=== PATIENT | female | born 1995 | race Caucasian/White ===

== ENCOUNTER → 2022-05-28 16:38 | Outpatient (CLI) | payer OTHER, SELFPAY ==
[2022-05-28 20:08] LABS: Opiate Screen,Urine Negative ng/ml (<300); Phencyclidine Screen,Urine Negative ng/ml (<25)
[2022-05-28 20:14] LABS: Amphetamine/Metha Screen,Urine Negative ng/ml (<1000)
[2022-05-28 20:15] LABS: Barbiturates Screen,Urine Negative ng/ml (<200); Benzodiazepines Screen,Urine Negative ng/ml (<200)
[2022-05-28 20:19] LABS: Cocaine Screen,Urine Negative ng/ml (<300)
[2022-05-28 20:20] LABS: Cannabinoid Screen,Urine Negative ng/ml (<50); Methadone Screen,Urine Negative ng/ml (<300)
== END ==
PROVIDERS: Visit Provider Obstetrics & Gynecology
DX: Z34.90 Encounter for supervision of normal pregnancy, unspecified, unspecified trimester (principal)
CPT/HCPCS: 80305; 87086

== ENCOUNTER → 2022-06-17 09:40 | Outpatient (CLI) | payer OTHER, SELFPAY ==
[2022-06-17 10:03] LABS: Basophils # 0.1 K/mm3 (0-0.2); Basophils % 0.6 % (0.1-2.0); Eosinophils # 0.1 K/mm3 (0.0-0.4); Eosinophils % 0.6 % (0.1-12.0); Hematocrit 39.4 % (37.0-47.0); Hemoglobin 13.1 g/dL (12.2-16.2); Lymphocytes # 1.8 K/mm3 (0.7-4.5); Lymphocytes % 21.1 % (10-50); Mean Corpuscular HGB Conc 33.2 g/dL (31.8-35.4); Mean Corpuscular Hemoglobin 29.5 pg (27.0-31.2); Mean Corpuscular Volume 88.8 fl (81-99); Mean Platelet Volume 8.5 fl (7.4-10.4); Monocytes # 0.4 K/mm3 (0.1-1.0); Monocytes % 4.5 % (1.7-9.3); Neutrophils # 6.4 K/mm3 (1.8-7.8); Neutrophils % 73.2 % (37.0-80.0); Platelet Count 222 K/mm3 (142-424); Red Blood Count 4.44 M/mm3 (4.20-5.40); Red Cell Distribution Width 13.5 % (11.5-17.5); White Blood Count 8.7 K/mm3 (4.8-10.8)
[2022-06-18 12:13] LABS: HIV Screen 4th Generation wRfx Non Reactive (Non Reactive); Rapid Plasma Reagin Ab Titer Non Reactive (NonRea<1:1)
[2022-06-19 23:53] LABS: Hepatitis B Surface Antigen NEGATIVE; Hepatitis C Antibody NON REACTIVE
== END ==
PROVIDERS: Visit Provider Obstetrics & Gynecology
DX: Z34.90 Encounter for supervision of normal pregnancy, unspecified, unspecified trimester (principal)
CPT/HCPCS: 36415; 85025; 86593; 86703; 86762; 86850; 87340; 87380; G0432

== ENCOUNTER → 2022-08-04 12:42 | Outpatient (CLI) | payer OTHER, SELFPAY ==
--- NOTE | 2022-08-04 12:43 | US_ITS ---
FINAL REPORT CLINICAL HISTORY: 20 week anatomy scan please use anatomy template FINDINGS: There is a single live intrauterine gestation. Presentation is cephalic. The cervix is closed and measures 2.8 cm. Placenta is anterior. movement is noted. Cardiac activity is confirmed at 143 beats per minute. Three-vessel cord with satisfactory umbilical cord insertion. Four-chamber heart is noted. brain and ventricles are unremarkable. Chest and diaphragm are unremarkable. ABDOMEN: Both kidneys are unremarkable. Stomach is unremarkable. SPINE: No anomalies identified. Both arms and legs noted. AMNIOTIC FLUID: Appropriate amount. MEASUREMENTS: ULTRASOUND AGE: 20 weeks 0 days. GESTATION AGE: 20 weeks 3 days. ESTIMATED WEIGHT: 324 g GROWTH PERCENTILE: 23% BPD: 4.8 cm consistent with 20 weeks 3 days. OFD: 5.8 cm consistent with 20 weeks 0 days. HC: 16.6 cm consistent with 19 weeks 3 days. AC: 14.7 cm consistent with 20 weeks 0 days. FL: 3.2 cm consistent with 20 weeks 1 days. CEREBELLUM: 2 cm consistent with 20 weeks 3 days. HUMERUS: 3.1 cm consistent with 20 weeks 4 days. HC/AC: 1.13 CI: 82% FL/BPD: 68% FL/AC: 22% IMPRESSION: Single living IUP with an ultrasound age of 20 weeks 0 days. No anomalies noted. Reviewed, Interpreted and Dictated by Kenyatta Rossi MD Transcribed by Jake Adame Authenticated and [facility]
== END ==
PROVIDERS: PCP Family Medicine; Visit Provider Obstetrics & Gynecology
DX: Z34.90 Encounter for supervision of normal pregnancy, unspecified, unspecified trimester (principal); Z3A.20 20 weeks gestation of pregnancy
CPT/HCPCS: 76811

== ENCOUNTER → 2022-09-12 08:57 | Outpatient (CLI) | payer OTHER, SELFPAY ==
[2022-09-12 09:33] LABS: Basophils % 0.1 % (0.1-2.0); Eosinophils % 0.6 % (0.1-12.0); Hemoglobin 10.8 g/dL (12.2-16.2); Lymphocytes # 1.6 K/mm3 (0.7-4.5); Lymphocytes % 21.1 % (10-50); Mean Corpuscular HGB Conc 31.7 g/dL (31.8-35.4); Mean Corpuscular Hemoglobin 28.6 pg (27.0-31.2); Mean Corpuscular Volume 90.3 fl (81-99); Monocytes # 0.5 K/mm3 (0.1-1.0); Monocytes % 6.1 % (1.7-9.3); Neutrophils # 5.5 K/mm3 (1.8-7.8); Neutrophils % 72.1 % (37.0-80.0); Platelet Count 174 K/mm3 (142-424); Red Blood Count 3.77 M/mm3 (4.20-5.40); White Blood Count 7.6 K/mm3 (4.8-10.8)
[2022-09-12 09:39] LABS: Glucose,Fasting 73 mg/dl (74-100)
[2022-09-12 11:34] LABS: Glucose 1 Hour 122 mg/dL (74-100)
== END ==
PROVIDERS: PCP Family Medicine; Visit Provider Obstetrics & Gynecology
DX: Z34.92 Encounter for supervision of normal pregnancy, unspecified, second trimester (principal); Z3A.26 26 weeks gestation of pregnancy
CPT/HCPCS: 36415; 82951; 85025

== ENCOUNTER → 2022-11-20 23:33 | Outpatient (CLI) | payer OTHER, SELFPAY | PROVIDERS: PCP Psychiatry & Neurology Sleep Medicine; Visit Provider Obstetrics & Gynecology | DX: Z34.93 Encounter for supervision of normal pregnancy, unspecified, third trimester (principal); Z3A.35 35 weeks gestation of pregnancy | CPT/HCPCS: 86403 ==

== ENCOUNTER 2022-12-04 16:10 | Outpatient (CLI) | payer OTHER, SELFPAY ==
[2022-12-04 16:33] VITALS: BMI 25.2
[2022-12-04 16:45] VITALS: BP 106/66; PULSE 92; RESP 18
[2022-12-04 16:58] VITALS: BP 136/90; PULSE 90; RESP 18; TEMP 36.6; O2SAT 99; BMI 25.2
[2022-12-04 17:15] VITALS: BP 112/68; PULSE 86; RESP 18
[2022-12-04 17:29] LABS: Basophils % 0.4 % (0.1-2.0); Eosinophils # 0.1 K/mm3 (0.0-0.4); Eosinophils % 0.8 % (0.1-12.0); Hematocrit 28.7 % (37.0-47.0); Hemoglobin 9.3 g/dL (12.2-16.2); Lymphocytes # 1.3 K/mm3 (0.7-4.5); Lymphocytes % 21.4 % (10-50); Mean Corpuscular HGB Conc 32.6 g/dL (31.8-35.4); Mean Corpuscular Hemoglobin 25.3 pg (27.0-31.2); Mean Corpuscular Volume 77.6 fl (81-99); Mean Platelet Volume 11.7 fl (7.4-10.4); Monocytes # 0.4 K/mm3 (0.1-1.0); Monocytes % 6.6 % (1.7-9.3); Neutrophils # 4.3 K/mm3 (1.8-7.8); Neutrophils % 70.8 % (37.0-80.0); Platelet Count 189 K/mm3 (142-424); Red Cell Distribution Width 16.3 % (11.5-17.5); White Blood Count 6.1 K/mm3 (4.8-10.8)
[2022-12-04 17:30] LABS: Activated Partial Thrombo Time 23.8 seconds (22.8-30.6); Fibrinogen 497 mg/dL (229.9-363.5); INR 0.94 (0.9-1.1); Prothrombin Time 10.2 seconds (10.1-12.5)
[2022-12-04 18:12] LABS: Albumin Level 3.6 g/dl (3.5-5.0); Alkaline Phosphatase 217 U/L (38-126); Anion Gap 14.7 mEq/L (5-15); Aspartate Amino Transferase 41 U/L (14-36); Bilirubin,Direct 0.1 mg/dl (0.0-0.4); Bilirubin,Indirect 0.2 mg/dL (0.0-0.9); Bilirubin,Total 0.3 mg/dl (0.2-1.3); Bilirubin,Unconjugated 0.1 mg/dL (0.0-1.1); Blood Urea Nitrogen 9 mg/dl (7-17); Calcium 9.5 mg/dl (8.4-10.2); Carbon Dioxide 21 mmol/L (22.0-30.0); Chloride 105 mmol/L (98-107); Creatinine Clearance Estimated 151 mL/min (50-200); Estimated Glomerular Filt Rate 118 ml/min (>60); GFR (African American) 143 ML/MIN (>60); Glucose 102 mg/dl (74-100); Potassium 3.7 mmoL/L (3.5-5.1); Sodium 137 mmol/L (136-145); Total Protein,Serum 7.1 g/dl (6.3-8.2); Uric Acid 4.7 mg/dl (2.5-6.2)
[2022-12-04 18:33] LABS: Alanine Aminotransferase 28 U/L (12-78)
== END 2022-12-04 18:15 | disposition home or self-care (01) ==
LOC: OBOUT 16:17 → OB 16:18
PROVIDERS: Visit Provider Obstetrics & Gynecology
DX: O26.893 Other specified pregnancy related conditions, third trimester (principal); Z3A.37 37 weeks gestation of pregnancy
CPT/HCPCS: 59025; 80048; 80076; 84450; 84460; 84550; 85025; 85378; 85384; 85610; 85730; G0463

== ENCOUNTER 2022-12-14 08:33 | Outpatient (CLI) | payer OTHER, SELFPAY ==
[2022-12-14 08:37] VITALS: BMI 25.4
[2022-12-14 08:53] VITALS: BMI 25.4
[2022-12-14 09:41] LABS: Microscopic, Urine URINE MICROSCOPIC (MICROSCOPIC)
[2022-12-14 09:52] LABS: Appearance,Urine CLEAR (Clear); Bilirubin,Urine Negative (Negative); Blood, Urine TRACE-I (Negative); Color,Urine YELLOW (Yellow); Glucose,Urine (UA) Negative (Negative); Ketones,Urine Negative (Negative); Leukocyte Esterase,Urine Negative (Negative); Nitrate,Urine Negative (Negative); PH,Urine 6.5 (5.0-8.5); Protein,Urine Negative (Negative); Urobilinogen,Urine 0.2 EU/dl (0.2)
[2022-12-14 10:05] LABS: Amphetamine/Metha Screen,Urine Negative ng/ml (<1000); Benzodiazepines Screen,Urine Negative ng/ml (<200)
[2022-12-14 10:06] LABS: Barbiturates Screen,Urine Negative ng/ml (<200); Methadone Screen,Urine Negative ng/ml (<300)
[2022-12-14 10:07] LABS: Cannabinoid Screen,Urine Negative ng/ml (<50)
[2022-12-14 10:08] LABS: Cocaine Screen,Urine Negative ng/ml (<300); Opiate Screen,Urine Negative ng/ml (<300)
[2022-12-14 10:09] LABS: Phencyclidine Screen,Urine Negative ng/ml (<25)
[2022-12-14 10:27] LABS: Bacteria,Urine Trace /lpf; WBC,Urine Occasional #/hpf (0-3)
== END 2022-12-14 12:05 | disposition home or self-care (01) ==
LOC: OBOUT 08:35 → OB 08:35
PROVIDERS: Visit Provider Obstetrics & Gynecology
DX: O60.03 Preterm labor without delivery, third trimester (principal); Z3A.39 39 weeks gestation of pregnancy
CPT/HCPCS: 59025; 80305; 81001; G0463

== ENCOUNTER 2022-12-14 21:27 | Inpatient (IN) | payer OTHER, SELFPAY ==
[2022-12-14 20:40] VITALS: BP 138/75; PULSE 83; RESP 18; TEMP 37; O2SAT 99
[2022-12-14 21:00] VITALS: BMI 25.4
[2022-12-14 21:13] LABS: Basophils % 0.1 % (0.1-2.0); Eosinophils # 0.1 K/mm3 (0.0-0.4); Eosinophils % 0.7 % (0.1-12.0); Hematocrit 34.4 % (37.0-47.0); Hemoglobin 10.8 g/dL (12.2-16.2); Lymphocytes # 1.1 K/mm3 (0.7-4.5); Lymphocytes % 8.9 % (10-50); Mean Corpuscular HGB Conc 31.4 g/dL (31.8-35.4); Mean Corpuscular Hemoglobin 24.4 pg (27.0-31.2); Mean Corpuscular Volume 77.6 fl (81-99); Monocytes # 0.4 K/mm3 (0.1-1.0); Monocytes % 3.5 % (1.7-9.3); Neutrophils # 11.1 K/mm3 (1.8-7.8); Neutrophils % 86.8 % (37.0-80.0); Platelet Count 193 K/mm3 (142-424); Red Blood Count 4.43 M/mm3 (4.20-5.40); Red Cell Distribution Width 16.8 % (11.5-17.5); White Blood Count 12.7 K/mm3 (4.8-10.8)
[2022-12-14 21:15] LABS: MANUAL DIFFERENTIAL MANUAL DIFFERENTIAL (MANUAL DIFF)
--- NOTE | 2022-12-14 22:08 | EXP.ANES.CKL ---
[facility] Disclaimer: The information contained in this section may have been updated after the patient was seen, as this information can be updated by other users. Medical History Anemia affecting Vulvar cyst Surgical History No history of previous surgery Family History Other No significant family history Social History Smoking Status: Never smoker alcohol intake: never substance use type: denies use current occupational status: employed and other Travel in the last 8 weeks: None [facility] Anesthesia Checklist Patient Identification Patient Identification: Arm Band Structural Data Admitted From: Inpatient Planned Operative Procedure/s: Labor Epidural Consent for Planned Operative Procedure(s) Verified: Yes Verified Documents: Surgical Consent and History and Physical NPO Status Verified Time NPO: 00:00 Additional verifications Anesthesia Reactions: No Airway Assessment Dentition: Good Dentition Neurological Assessment Level of Consciousness: Awake and Alert Anesthesia Plan Anesthesia Risk discussed: Yes Anesthesia Plan: Verified ASA Class: II Anesthesia Type: Epidural
[2022-12-14 22:09] LABS: Lymphocytes % 12 % (10-50); Monocytes % 1 % (2-9); Neutrophils % 87 % (42-76); Platelet Estimate Normal; RBC Morphology Normal; Total Cells Counted 100
--- NOTE | 2022-12-14 23:07 | EXP.HP ---
History of Present Illness *Admission Date: 12/14/22 *Reason for visit:: Labor *History of present illness: Cynthia is a 27-year-old at 39 weeks and 2 days gestation who presented to labor and delivery with regular painful contractions. She had previously presented earlier this morning with contractions but after arrival to the hospital her contractions had spaced out and she elected to go back home until contractions returned. She received care with Dr. Horvath. Her has been uncomplicated. At 37 weeks and 6 days gestation she did have some elevated blood pressures however her PIH labs have been normal and on arrival her blood pressure was 138/75. On presentation patient endorsed good movement and denies any leakage of fluid or vaginal bleeding. O+, antibody negative, rubella immune, hepatitis B negative, hepatitis C negative, RPR negative, HIV negative 1 hour GTT: 122 GBS negative PFSH PFS Disclaimer: The information contained in this section may have been updated after the patient was seen, as this information can be updated by other users. Medical History Anemia affecting Vulvar cyst Surgical History No history of previous surgery Family History Other No significant family history Social History (Updated 12/14/22 @ 23:11 by Mary Anne Reid RN) Smoking Status: Never smoker alcohol intake: never substance use type: denies use current occupational status: employed Travel in the last 8 weeks: None Review of Systems Review of Systems Review of systems (narrative): Review of Systems Constitutional: Denies fever, chills, and sweats Eyes: Denies vision change/ pain Respiratory: Denies cough and shortness of breath Cardiovascular: Denies chest pain and lightheadedness Gastrointestinal: Admits abdominal pain with contractions. Denies nausea, vomiting. Genitourinary: Denies dysuria and incontinence Musculoskeletal: Denies shoulder pain and back pain Neurological: Denies change in speech or headaches Meds Home Medications and Allergies Home Medications Medication Instructions Recorded Confirmed Type vitamins no.119-iron tab PO 04/28/22 12/10/22 History fumarate 29 mg-folic acid 1 mg tablet New Prescriptions to Start Prescriptions: Allergies Allergy/AdvReac Type Severity Reaction Status Date / Time No Known Allergies Allergy Verified 12/10/22 14:35 Exam Data for Last 24 hours Vital signs and Labs for Last 24 Hours: Laboratory Results - last 24 hr 12/14/22 21:00: WBC 12.7 H, RBC 4.43, Hgb 10.8 L, Hct 34.4 L, MCV 77.6 L, MCH 24.4 L, MCHC 31.4 L, RDW 16.8, Plt Count 193, MPV 11.0 H, Neut % (Auto) 86.8 H, Lymph % (Auto) 8.9 L, [place] % (Auto) 3.5, Eos % (Auto) 0.7, Baso % (Auto) 0.1, Neut # (Auto) 11.1 H, Lymph # (Auto) 1.1, [place] # (Auto) 0.4, Eos # (Auto) 0.1, Baso # (Auto) 0.0, Total Counted 100, Neutrophils % (Manual) 87 H, Lymphocytes % (Manual) 12, Monocytes % (Manual) 1 L, Platelet Estimate Normal, RBC Morphology Normal, Blood Type O Positive, Antibody Screen Negative I & O for Last 24 hours: Intake & Output 12/11/22 12/12/22 12/13/22 12/14/22 23:59 23:59 23:59 23:59 Weight 153 lb Narrative: General: patient is alert oriented in no acute distress and responds appropriately to questions. HEENT: NCAT, EOMI, moist mucous membranes, neck supple with full ROM Cardiovascular: RRR +S1/S2, no murmurs or rubs Pulmonary: Clear to auscultation bilaterally, nonlabored breathing, symmetric chest rise Abdominal: Gravid abdomen appropriate for gestation. No guarding, rebound, or tenderness noted. SVE: On admission the patient was so uncomfortable the RN was not able to adequately assess the cervix. The patient was admitted, received an epidural and then was checked a
[2022-12-14 23:09] VITALS: BP 138/75; PULSE 83; RESP 18; TEMP 37; O2SAT 99; BMI 25.4
--- NOTE | 2022-12-15 06:33 | EXP.DN ---
Delivery Note Delivery Date:: 12/15/22 Delivery Time:: 05:53 Anesthesia Type: Epidural Was labor medically induced?: No Induction method: none Gestational age (weeks): 39 delivered prior to 39 weeks?: No Gender: Male at 1 minute: 6 at 5 minutes: 8 LAC or MLE?: MLE Delivery Procedure:: Preoperative diagnosis: 1. at 39 completed this weeks gestation, vertex 2. Rh positive 3. GBS negative 4. Active labor Postoperative diagnosis: 1. at 39 completed this weeks gestation, vertex 2. Rh positive 3. GBS negative 4. Active labor EBL: 400mL Specimen: 1. Cord blood 2. Arterial and venous cord gas Medications: 1. 1000mcg of Cytotec HI 2. 2g IV Ancef Findings: 1. Liveborn viable male : Fernandez Philip. Apgars 6/8 at 1 and 5 minutes respectively. Weight pending at time of dictation 2. 3a midline perineal laceration Complications: None Cynthia Martinez is a 27-year-old G1, P0 who presented to labor and delivery with regular painful contractions and was noted to be in active labor. She received an epidural shortly after arriving to labor and delivery. After her epidural she experienced spontaneous rupture membranes revealing clear fluid and was noted to be 8 cm at that time. She continued to progress through labor normally without any augmentation. At approximately 0300 she was noted to be complete and had an urge to push. Pushing was initiated but her contractions were spaced out significantly and Pitocin was started to increase the strength and frequency of the contractions. And initiation of pushing the patient was at a -1 station. During pushing the patient had variable decelerations with contractions. They recovered to baseline with good variability in between contractions. During the last 45 minutes of pushing the variables became longer. The variables also started to occur following the contraction and they were getting down into the 60s and becoming more difficult to resuscitate from. There was a tight hymenal band ring that was restricting the delivery of the . The patient was counseled on the risk benefits of episiotomy as well as vacuum-assisted vaginal delivery. The patient elected for an episiotomy to assist with delivery. 10 mL of 1% lidocaine was injected into the perineum and a midline episiotomy was made. The patients bladder was emptied of approximately 100mL of clear urine in the event a vacuum was needed. Following the next 2 contractions I realized that the episiotomy was too shallow and an additional half a centimeter was cut. The delivered shortly after this. The infant was noted to be in HEATHER position. With effective maternal pushing there was a nonoperative spontaneous vaginal delivery at 0553. There is no nuchal cord. There was a compound presentation of the posterior right arm. The anterior left shoulder delivered, followed by the posterior shoulder without dystocia. The body and lower extremities delivered without difficulty. The was bulb suctioned and was crying immediately following delivery. The was placed on the maternal abdomen and greater than one minute was appreciated for delayed cord clamping. The umbilical cord was doubly clamped and cut. Arterial and venous cord gases were collected. Cord blood was collected and sent for routine testing. The placenta delivered with cord traction and suprapubic contertraction. Pitocin was started and the placenta and cord were inspected. The placenta was noted to be intact, with a 3 vessel cord. The uterus was firm and bleeding was minimal. The perineum, vaginal pickering, cervix, and paraurethral area were inspected thoroughly. There was a 3a midline perineal laceration. Rectal exam was done to confirm no rectal involvement. 2g IV Ancef administered secondary to oasis injury. The sphincter was grasped with an ruth on each side and reapproximated end to end. The laceration was repaired in the usual fashion using 2-0
[2022-12-15 06:59] LABS: VBG Base Excess -7.7 mmol/L (-2.4-2.3); VBG HCO3 19.3 mmol/L (23-30); VBG Oxygen Saturation 28.3 % (50-70); VBG PCO2 43.2 mmol/L (35-51); VBG PH 7.27 mmol/L (7.31-7.41); VBG PO2 15.6 mmol/L (28-40); VBG Total CO2 20.6 mmol/L (23-27)
[2022-12-15 07:01] LABS: ABG HCO3 16.3 mmhg (22.0-26.0); ABG Oxygen Saturation 44 % (90-100); ABG PCO2 44.9 mmhg (35.0-45.0); ABG TCO2 17.7 mmhg (23-27)
[2022-12-15 07:02] LABS: ABG PH 7.18 mmol/L (7.35-7.45); ABG PO2 23.6 mmhg (80-100)
[2022-12-15 21:05] VITALS: BP 140/77; PULSE 77; RESP 18; TEMP 37
[2022-12-16 05:49] LABS: Basophils % 0.3 % (0.1-2.0); Eosinophils # 0.1 K/mm3 (0.0-0.4); Eosinophils % 0.4 % (0.1-12.0); Hematocrit 28.9 % (37.0-47.0); Hemoglobin 9.1 g/dL (12.2-16.2); Lymphocytes # 1.8 K/mm3 (0.7-4.5); Lymphocytes % 15.6 % (10-50); Mean Corpuscular HGB Conc 31.4 g/dL (31.8-35.4); Mean Corpuscular Hemoglobin 24.8 pg (27.0-31.2); Mean Corpuscular Volume 79.1 fl (81-99); Mean Platelet Volume 11.2 fl (7.4-10.4); Monocytes # 0.5 K/mm3 (0.1-1.0); Monocytes % 4.6 % (1.7-9.3); Neutrophils % 79.1 % (37.0-80.0); Platelet Count 135 K/mm3 (142-424); Red Blood Count 3.66 M/mm3 (4.20-5.40); Red Cell Distribution Width 16.9 % (11.5-17.5); White Blood Count 11.4 K/mm3 (4.8-10.8)
--- NOTE | 2022-12-16 11:48 | EXP.DC.SUM ---
General Admission date:: 12/14/22 Discharge date: 12/16/22 HPI HPI HPI: PPD # 1 s/p Sitting comfortably in bed. She is breast feeding. Pain controlled. Light lochia. Voiding without difficulty and passing flatus. Tolerating regular diet. Denies fever/chills, chest pain and shortness of breath. No headaches or vision changes. Admits to some lower extremity swelling. No calf pain. Ambulating well ad chalino. Hospital Course Hospital Course Hospital Course: Cynthia is a 27-year-old at 39 weeks and 2 days gestation who presented to labor and delivery with regular painful contractions. She had previously presented earlier this morning with contractions but after arrival to the hospital her contractions had spaced out and she elected to go back home until contractions returned. She received care with Dr. Horvath. Her has been uncomplicated. At 37 weeks and 6 days gestation she did have some elevated blood pressures however her PIH labs have been normal and on arrival her blood pressure was 138/75. On presentation patient endorsed good movement and denies any leakage of fluid or vaginal bleeding. She had a normal spontaneous vaginal delivery with a 3a perineal laceration on 12/15/22 at 0553. She delivered a live male baby, Fernandez Philip, weighing 6 lb 10 oz. APGARs 6, 8. EBL 400 mL. She did well . She is breast feeding. Pain controlled. Light lochia. Voiding without difficulty and passing flatus. Tolerating regular diet. Denies fever/chills, chest pain and shortness of breath. No headaches or vision changes. Admits to some lower extremity swelling. No calf pain. Ambulating well ad chalino. Exam Data for Last 24 hours Vital signs and Labs for Last 24 Hours: Temp Pulse Resp BP Pulse Ox O2 Del Method 98.6 F 77 18 140/77 99 Room Air 12/15/22 21:05 12/15/22 21:05 12/15/22 21:05 12/15/22 21:05 12/14/22 23:09 12/14/22 23:09 Laboratory Results - last 24 hr 12/16/22 05:15: WBC 11.4 H, RBC 3.66 L, Hgb 9.1 L, Hct 28.9 L, MCV 79.1 L, MCH 24.8 L, MCHC 31.4 L, RDW 16.9, Plt Count 135 L D, MPV 11.2 H, Neut % (Auto) 79.1, Lymph % (Auto) 15.6, [place] % (Auto) 4.6, Eos % (Auto) 0.4, Baso % (Auto) 0.3, Neut # (Auto) 9.0 H, Lymph # (Auto) 1.8, [place] # (Auto) 0.5, Eos # (Auto) 0.1, Baso # (Auto) 0.0 I & O for Last 24 hours: Intake & Output 12/13/22 12/14/22 12/15/22 12/16/22 23:59 23:59 23:59 23:59 Weight 153 lb Constitutional Constitutional: no acute distress *Routine HEENT Exam Head: Present normocephalic and atraumatic Eye: Absent conjunctivae pink ENT: Present mucous membranes moist *Routine Neck Exam Neck: Present full ROM *Routine Respiratory Exam Respiratory: Present CTA bilaterally and normal respiratory effort *Routine Cardiovascular Exam Cardiovascular: Present RRR *Routine Abdominal Exam Abdominal: Present soft and normoactive bowel sounds; Absent tenderness or distended Comments: Uterine fundus firm and below umbliicus *Routine Rectal Exam Patient deferred: visual exam *Routine Exam Patient deferred: external exam *Routine Extremities Exam Extremities: Present edema (+1 bilateral lower extremity swelling) and full ROM; Absent calf tenderness *Routine Neurological Exam Neurological: Present alert, oriented X3 and moving all extremities Routine Psychiatric Exam Psychiatric: Present normal affect and cooperative Results Data Completed and Pending Labs on day of discharge: Labs from last 24 hours 12/16/22 05:15 WBC 11.4 H RBC 3.66 L Hgb 9.1 L Hct 28.9 L MCV 79.1 L MCH 24.8 L MCHC 31.4 L RDW 16.9 Plt Count 135 L D MPV 11.2 H Neut % (Auto) 79.1 Lymph % (Auto) 15.6 [place] % (Auto) 4.6 Eos % (Auto) 0.4 Baso % (Auto) 0.3 Neut # (Auto) 9.0 H Lymph # (Auto) 1.8 [place] # (Auto) 0.5 Eos # (Auto) 0.1 Baso # (Auto) 0.0 DS: Diagnosis Discharge Diagnosis (1) : Status: Acute Code(s): Z34.90 - Encounter for super
== END 2022-12-16 16:50 | disposition home or self-care (01) | DRG 768 ==
LOC: OBOUT 21:27 → OB 21:28
PROVIDERS: Admitting Provider Obstetrics & Gynecology; Visit Provider Obstetrics & Gynecology
DX: O70.21 Third degree perineal laceration during delivery, IIIa (principal); Z37.0 Single live birth; Z3A.38 38 weeks gestation of pregnancy
CPT/HCPCS: 59409; 59025; 82803; 85007; 85025; 86850; 94761; G0283; J0690; J2405

== ENCOUNTER → 2022-12-23 10:21 | Outpatient (CLI) | payer OTHER, SELFPAY | PROVIDERS: Visit Provider Pediatrics | DX: Z39.1 Encounter for care and examination of lactating mother (principal) ==

== ENCOUNTER 2024-06-05 14:55 | Emergency (ER) | payer OTHER, SELFPAY ==
[2024-06-05 14:59] VITALS: BP 153/71; PULSE 87; RESP 18; TEMP 37.8; O2SAT 100
--- NOTE | 2024-06-05 15:09 | HMH.EDGENADL ---
Discharge Plan Disposition Patient Disposition: Home, Self-Care Condition: Good Prescriptions Prescriptions: No Action No Known Home Medications Referrals Follow up/Referrals: Jihan Horvath DO [Staff Physician] - See instructions Provider,Referral, [Primary Care Provider] - See instructions Activity Restrictions/Add. Instructions Additional Instructions/Restrictions: As we discussed, your ultrasound showed an intrauterine and we did not see a heart rate. Your quantitative hCG is over 51,000 and the size of the pole is large enough that we would expect to see a heart rate. With the vaginal bleeding you are having, this likely represents a miscarriage. I spoke with Dr. Bergman who was in the same office as Dr. Venegas and her other partners. They would like to see you tomorrow morning in that same office that you have been to before, if you can, please do not eat anything after midnight as to have the option of performing a D and C if, after discussion and further review, this is indicated. The final read of your ultrasound is not back and that should be reviewed and followed up in the office. Please return with any new or worsening symptoms. Clinical Impressions Clinical Impression: Miscarriage Instructions Patient Instructions: DI for Miscarriage Print Language Print Language: Arabic Discharge ED Provider: Aman Webster Adult HPI General Chief complaint: Abdominal Pain Stated complaint: 9wks cramping/bleeding Time Seen by Provider: 06/05/24 15:08 Mode of Arrival: Ambulatory Source of Information: Patient Description of Symptoms (Recalled from ER Triage Doc. by RN): Patient presents ambulatory to triage. Patient's father is with her. Patient gives permission for father to stay during triage evaluation. Patient reports she is 9-weeks . States, I think I might be having a miscarriage. Endorses bleeding and cramping. States she has bled through one pad today since 1000. Patient states she is wearing a second pad currently. Endorses passing one clot. G-2, P-1, A-0 History of Present Illness HPI narrative: Patient presents with vaginal bleeding and intermittent cramping, gradual in onset, starting today, stable in course, with no exacerbating or alleviating factors. She reports that she is approximately 9 weeks preganant and has not had a confirmed IUP. She has been through 2 pads in the past day. No fevers or chills or dysuria or pain elsewhere Please note that above description of symptoms, in this electronic medical record under categorization of recalled from ER triage doctor by RN are reflective of an initial nursing assessment, however, is not reflective of my full history and physical exam that was personally taken and clarified. Consequentially, this preceding description of symptoms, which may include the patient's categorized chief complaint in the EMR, do not reflect my personal clinical impression, and the ultimate description of history of present illness and patient stated complaints should be deferred to this section of the note. Unless stated otherwise or congruent with this section of the note, additional signs, symptoms, or incongruence should be interpreted as inaccurate with my clinical impression. Related Data Home Medications ?Medication ?Instructions ?Recorded ?Confirmed No Known Home Medications 01/29/23 06/07/24 Allergies Allergy/AdvReac Type Severity Reaction Status Date / Time No Known Allergies Allergy Verified 06/07/24 08:41 [facility] Disclaimer: The information contained in this section may have been updated after the patient was seen, as this information can be updated by other users. Medical History Acute blood loss anemia Vulvar cyst Surgical History Status post vaginal delivery Family History Other No significant family history Social History Smoking Status: Never smoker alcohol intake: never substance use type: denies use current occupational status: employed Travel in the last 8 weeks: None Have you lived/traveled outside [place] in past 30 days?: No Contact w/someone who lives/traveled outside [place] past 30 days?: No Exposure to someone with infectious disease in past 14 days?: No Do you have a fever (greater than 100.4 F or 38 C)?: No Have you tested positive for COVID-19: No Exposed to someone with COVID-19 in past 14 days?: No Do you have a sore throat?: No Do you have a cough?: No Do you have shortness of breath?: No Do you have a headache?: No Do you have any weakness?: No Are you experiencing any nausea/vomitting?: No Do you have any diarrhea?: No Are you experiencing any unusual bleeding?: No Do you have any muscle aches/pain?: No Do you have any abdominal pain?: No Are you experiencing loss of taste or smell?: No Other Medical History Have you received the Flu Vaccine for this season: No Have you received the Pneumonia Vaccine: No ROS Obtained: Yes other As per HPI Physical Exam General General appearance: alert and in no apparent distress Head Head exam: atraumatic and normocephalic Eye Eye exam: Present normal appearance Neck Neck exam: Present normal inspection Chest Chest inspection: Present normal inspection and symmetric chest wall rise Respiratory Respiratory exam: Present normal lung sounds bilaterally; Absent respiratory distress Cardiovascular Cardiovascular exam: Present regular rate and normal rhythm Abdominal Exam Abdominal exam: Present soft Neurological Exam Neurological exam: Present alert and oriented X3 Psychiatric Psychiatric exam: Present normal affect and normal mood Skin Skin exam: Present warm and dry Medical Decision Making Medical Records Medical records reviewed: Yes I reviewed the patient's medical records. Screening: Per USPSTF and CDC recommendations, given the prevalence of disease in our region, it is our hospital?s policy to screen for HIV and viral Hepatitis for all patients aged 18 and over and those with ongoing risk factors. Daniel Inquiry Pt receiving controlled substance: No Vital Signs: 06/05/24 14:59 06/05/24 17:56 06/05/24 18:02 Temperature 100.0 F H 99 F Temperature Source Oral Oral Pulse Rate 78 82 Pulse Rate [Radial] 87 Respiratory Rate 18 16 Blood Pressure 116/70 118/70 Blood Pressure [R Arm] 153/71 H Blood Pressure Mean [R Arm] 98 Blood Pressure Source Automatic Cuff Blood Pressure Source [R Arm] Automatic Cuff Blood Pressure Position [R Arm] Sitting 02 Sat by Pulse Oximetry 100 95 Oxygen Delivery Method Room Air Room Air Room Air Lab Data Lab Results 06/05/24 15:50: Urine Color Yellow, Urine Appearance Clear, Urine pH 6.5, Ur Specific [place] 1.015, Urine Protein Negative, Urine Glucose (UA) Negative, Urine Ketones Negative, Urine Blood 2+ A, Urine Nitrate Negative, Urine Bilirubin Negative, Urine Urobilinogen 0.2, Ur Leukocyte Esterase Negative, Urine RBC 10-20, Urine WBC 5-10, Ur Squamous Epith Cells 5-10, Urine Bacteria 1+, Urine HCG, Qual Positive 06/05/24 16:00: WBC 10.1, RBC 4.52, Hgb 13.1, Hct 38.5, MCV 85.2, MCH 29.0, MCHC 34.0, RDW 12.9, Plt Count 215, MPV 10.2, Neut % (Auto) 82.5 H, Lymph % (Auto) 10.1, [place] % (Auto) 6.8, Eos % (Auto) 0.1, Baso % (Auto) 0.2, Neut # (Auto) 8.3 H, Lymph # (Auto) 1.0, [place] # (Auto) 0.7, Eos # (Auto) 0.0, Baso # (Auto) 0.0, Sodium 136, Potassium 3.3 L, Chloride 100, Carbon Dioxide 25, Anion Gap 14.3, BUN 8, Creatinine 0.60, Estimated Creat Clear 117, Estimated GFR 117, Est GFR ( Amer) 141, Glucose 86, Calcium 9.5, Total Bilirubin 0.4, AST 38 H, ALT 27, Alkaline Phosphatase 79, Total Protein 8.3 H, Albumin 5.2 H, Globulin 3.1, Albumin/Globulin Ratio 1.7, HCG, Quant 53438 H, HCV Ab KIMBERLY w/Rflx PCR Qn Negative, HIV Ag/Ab Combo Qual Negative 06/05/24 16:14: Blood Type O Positive 06/05/24 16:00 06/05/24 16:00 Orders (Tests/Meds): ORDERS Category Date Time Status ABO/RH Type Stat BBK 06/05/24 16:14 Completed POCUS Point of Care (ER Only) Stat Exams 06/05/24 15:34 Completed Beta HCG, Quant [HCG,Quantitative] Stat Lab 06/05/24 16:00 Completed CBC w/Auto Diff [Complete Blood Count Auto Diff] Stat Lab 06/05/24 16:00 Completed CMP [Comprehensive Metabolic Panel] Stat Lab 06/05/24 16:00 Completed HIV Combo Stat Lab 06/05/24 16:00 Completed Hepatitis C Ab Qual. W/ RFX Stat Lab 06/05/24 16:00 Completed Urinalysis and Microscopic Stat Lab 06/05/24 15:50 Completed Urine , HCG Qual. Stat Lab 06/05/24 15:50 Completed Urine Culture Stat Micro 06/05/24 15:50 Received US OB transvaginal Stat Ultrasound 06/05/24 15:43 Completed Medical Decision Narrative: Patient with history and exam per above presenting for evaluation of vaginal bleeding in the setting of Diagnoses considered include miscarriage, ectopic , anemia, among others ED workup and treatment included: ORDERS Category Date Time Status ABO/RH Type Stat BBK 06/05/24 16:14 Completed POCUS Point of Care (ER Only) Stat Exams 06/05/24 15:34 Completed Beta HCG, Quant [HCG,Quantitative] Stat Lab 06/05/24 16:00 Completed CBC w/Auto Diff [Complete Blood Count Auto Diff] Stat Lab 06/05/24 16:00 Completed CMP [Comprehensive Metabolic Panel] Stat Lab 06/05/24 16:00 Completed HIV Combo Stat Lab 06/05/24 16:00 Completed Hepatitis C Ab Qual. W/ RFX Stat Lab 06/05/24 16:00 Completed Urinalysis and Microscopic Stat Lab 06/05/24 15:50 Completed Urine , HCG Qual. Stat Lab 06/05/24 15:50 Completed Urine Culture Stat Micro 06/05/24 15:50 Received US OB transvaginal Stat Ultrasound 06/05/24 15:43 Completed Labs were independently interpreted by me, significant for elevated quantitative HCG, no anemia, rH + Imaging was independently visualized and interpreted by me, significant for IUP with no FHR Please refer to radiology report for full details. My clinical impression at this time is most consistent with a miscarriage. Case was discussed with OBGYN who recommends follow up tomorrow morning to discuss further managment. I discussed my clinical impression with patient and answered all questions. At this time, the evidence for any other entities in the differential is insufficient to warrant any further testing or ED observation. This was explained to the patient. The patient was advised that persistent or worsening symptoms require further evaluation. Critical Care Critical Care Time Critical Care Time: No
--- NOTE | 2024-06-05 15:35 | PC.NURSE ---
dr amezcua at bedside
--- NOTE | 2024-06-05 15:43 | US_ITS ---
PROCEDURE INFORMATION: Exam: US , Transvaginal Exam date and time: 06/05/2024 4:18 PM Age: 29 years old Clinical indication: Lmp or gestational age (in weeks): 9w4d; Antepartum complications; Bleeding; ; Additional info: 9 week , vaginal cramping, bleeding TECHNIQUE: Imaging protocol: Real-time transvaginal obstetrical ultrasound of the maternal pelvis with image documentation. Transvaginal imaging was used for better evaluation of the fetus, adnexa, and/or cervix. COMPARISON: US OB /MATERNAL DETAIL 08/04/2022 1:05 PM FINDINGS: Gestation: Single intrauterine gestation with a mean sac diameter of 3 cm. Yolk sac normal in morphology measuring 0.54 cm. pole with a crown-rump length of 8.88 mm. heart rate: No detectable cardiac activity. Placenta: No subchorionic hemorrhage. BIOMETRY: Gestational age (AUA): 7 weeks 0 days MATERNAL: Right ovary/adnexa: Right ovary. Unremarkable right ovary. Normal vascular flow. No adnexal mass. Left ovary/adnexa: Unremarkable left ovary. Normal vascular flow. No adnexal mass. Intraperitoneal space: No free fluid. IMPRESSION: Single intrauterine gestation measuring 7 weeks 0 days. pole with a crown-rump length exceeding 7 mm and no detectable cardiac activity, findings concerning for failed early .
[2024-06-05 15:57] LABS: Microscopic, Urine URINE MICROSCOPIC (MICROSCOPIC)
[2024-06-05 16:04] LABS: Urine Pregnancy, HCG Qual. Positive (Negative)
[2024-06-05 16:10] LABS: Basophils % 0.2 % (0.1-2.0); Eosinophils % 0.1 % (0.1-12.0); Hematocrit 38.5 % (37.0-47.0); Hemoglobin 13.1 g/dL (12.2-16.2); Lymphocytes % 10.1 % (10-50); Mean Corpuscular Volume 85.2 fl (81-99); Mean Platelet Volume 10.2 fl (7.4-10.4); Monocytes # 0.7 K/mm3 (0.1-1.0); Monocytes % 6.8 % (1.7-9.3); Neutrophils # 8.3 K/mm3 (1.8-7.8); Neutrophils % 82.5 % (37.0-80.0); Platelet Count 215 K/mm3 (142-424); Red Blood Count 4.52 M/mm3 (4.20-5.40); Red Cell Distribution Width 12.9 % (11.5-17.5); White Blood Count 10.1 K/mm3 (4.8-10.8)
[2024-06-05 16:20] LABS: Albumin Level 5.2 g/dl (3.5-5.0); Chloride 100 mmol/L (98-107); Potassium 3.3 mmoL/L (3.5-5.1); Sodium 136 mmol/L (136-145)
[2024-06-05 16:23] LABS: Alanine Aminotransferase 27 U/L (12-78); Albumin/Globulin Ratio 1.7 (1.1-1.8); Alkaline Phosphatase 79 U/L (38-126); Anion Gap 14.3 mEq/L (5-15); Aspartate Amino Transferase 38 U/L (14-36); Bilirubin,Total 0.4 mg/dl (0.2-1.3); Blood Urea Nitrogen 8 mg/dl (7-17); Calcium 9.5 mg/dl (8.4-10.2); Carbon Dioxide 25 mmol/L (22.0-30.0); Creatinine Clearance Estimated 117 mL/min (50-200); Estimated Glomerular Filt Rate 117 ml/min (>60); GFR (African American) 141 ML/MIN (>60); Globulin 3.1 g/dL (1.3-3.2); Glucose 86 mg/dl (74-100); Total Protein,Serum 8.3 g/dl (6.3-8.2)
--- NOTE | 2024-06-05 16:24 | PC.NURSE ---
Patient to US at this time
[2024-06-05 16:31] LABS: Appearance,Urine Clear (Clear); Color,Urine Yellow (Yellow)
[2024-06-05 16:32] LABS: Bilirubin,Urine Negative (Negative); Blood, Urine 2+ (Negative); Glucose,Urine (UA) Negative (Negative); Ketones,Urine Negative (Negative); Leukocyte Esterase,Urine Negative (Negative); Nitrate,Urine Negative (Negative); PH,Urine 6.5 (5.0-8.5); Protein,Urine Negative (Negative); Specific Gravity, Urine 1.015 (1.005-1.030); Urobilinogen,Urine 0.2 EU/dl (0.2)
[2024-06-05 16:53] LABS: Bacteria,Urine 1+ /lpf
--- NOTE | 2024-06-05 16:59 | PC.NURSE ---
MISSION ANALYST OB PAGED
--- NOTE | 2024-06-05 17:00 | PC.NURSE ---
Dr Webster s/w on-call OBCHERY Bergman
--- NOTE | 2024-06-05 17:01 | PC.NURSE ---
DR SEQUEIRA SPEAKING WITH OB BASE LOADER
[2024-06-05 17:41] LABS: HIV Combo NEGATIVE (Negative)
[2024-06-05 17:49] LABS: Hepatitis C Ab Qual. W/ RFX NEGATIVE (Negative)
[2024-06-05 17:56] VITALS: BP 116/70; PULSE 78; O2SAT 95
--- NOTE | 2024-06-05 17:58 | PC.NURSE ---
DR SEQUEIRA AT BEDSIDE TO UPDATE PT AND FAMILY
[2024-06-05 18:02] VITALS: BP 118/70; PULSE 82; RESP 16; TEMP 37.2; O2SAT 100
== END 2024-06-05 18:21 | disposition home or self-care (01) ==
PROVIDERS: Emergency Provider Emergency Medicine
DX: O03.9 Complete or unspecified spontaneous abortion without complication (principal); R10.9 Unspecified abdominal pain; Z3A.09 9 weeks gestation of pregnancy
CPT/HCPCS: 76817; 80053; 81001; 81025; 84702; 85025; 86803; 86900; 86901; 87086; 87389; 99283

== ENCOUNTER 2025-02-14 11:07 | Outpatient (CLI) | payer OTHER, SELFPAY ==
[2025-02-14 12:07] LABS: Hematocrit 38.3 % (37.0-47.0); Hemoglobin 12.9 g/dL (12.2-16.2); Immature Granulocytes % 0.3 %; Mean Corpuscular HGB Conc 33.7 g/dL (31.8-35.4); Mean Corpuscular Hemoglobin 28.7 pg (27.0-31.2); Mean Corpuscular Volume 85.3 fl (81-99); Nucleated Red Blood Cells % 0 %; Platelet Count 214 K/mm3 (142-424); Red Blood Count 4.49 M/mm3 (4.20-5.40); Red Cell Distribution Width-SD 39.5 fL; White Blood Count 9.8 K/mm3 (4.8-10.8)
[2025-02-14 13:43] LABS: Hepatitis C Ab Qual. W/ RFX NEGATIVE (Negative)
[2025-02-14 14:51] LABS: RPR W/RFX Titers Nonreactive (Nonreactive)
[2025-02-15 05:19] LABS: Hepatitis B Surface Antigen Negative (Negative)
[2025-02-15 08:38] LABS: Rubella Antibodies, IgG 10.40 index (Immune >0.99)
== END 2025-02-14 23:59 | disposition home or self-care (01) ==
LOC: LAB 11:07
PROVIDERS: Visit Provider Obstetrics & Gynecology
DX: Z34.90 Encounter for supervision of normal pregnancy, unspecified, unspecified trimester (principal); Z3A.00 Weeks of gestation of pregnancy not specified
CPT/HCPCS: 36415; 85025; 86592; 86762; 86787; 86803; 86850; 87340; 87389